=== PATIENT | female | born 1995 | race African-American/Black ===

== ENCOUNTER 2019-04-02 09:40 | Emergency (ER) | payer BC ==
[~2019-04-02] VITALS: Ht 160 cm; Wt 86.2 kg
[~2019-04-02 09:40] MED LIST: ACETAMINOPHEN-1 EAC1 PO; CLEOCIN HCL300 MG PO; IBUPROFEN 600600 M1 PO; MEDROLDOSEPACK PO; METROGEL-VAGINA70 GM VAG; OSELB75 PO; PHENERGAN 25 MG25 M1 PO; PROMETHAZINE D480 ML PO; TESSALON PERLE100 MG PO; TRAMADOL 50 MG50 MG PO
[2019-04-02] MEDS ORDERED: DOXYCYCLINE 10100 M1 PO (09:49)
[2019-04-02 09:55] VITALS: BP 158/97
== END 2019-04-02 09:56 | disposition home or self-care (01) ==
LOC: M.ERS 09:40
DX: S50.862A Insect bite (nonvenomous) of left forearm, initial encounter (principal); L03.114 Cellulitis of left upper limb; W57.XXXA Bitten or stung by nonvenomous insect and other nonvenomous arthropods, initial encounter; Y93.89 Activity, other specified; Y92.89 Other specified places as the place of occurrence of the external cause; Y99.8 Other external cause status